=== PATIENT | male | born 1950 | race Caucasian/White ===

== ENCOUNTER 2021-09-30 10:25 | Emergency (ER) | payer MEDICARE ==
[~2021-09-30] VITALS: Ht 167.6 cm; Wt 59.0 kg
--- NOTE | 2021-09-30 10:32 | NUR ---
TO ER 10 FOR EVAL AND TREATMENT OF BLE NUMBNESS/TINGLING,NAD
[2021-09-30] MEDS ORDERED: TAMS-12 PO (10:49)
[2021-09-30] MEDS ORDERED: [UNRECOGNIZED DRUG - REMARK] PO (10:49)
[2021-09-30] MEDS ORDERED: AMLO-212 PO (10:49)
[2021-09-30 10:57] LABS: BASOPHILS % (AUTO) 0.8 % (0.0-2.0); EOSINOPHILS % (AUTO) 1.4 % (0.0-6.0); HEMATOCRIT 33 % (39-51); HEMOGLOBIN 10.8 g/dL (13.5-17.5); LYMPHOCYTES # (AUTO) 0.4 K/uL (0.8-4.8); LYMPHOCYTES % (AUTO) 8.9 % (20.0-44.0); MEAN CORPUSCULAR HGB CONC 33 g/dl (31.0-36.0); MEAN CORPUSCULAR VOLUME 78 fL (80-96); MONOCYTES # (AUTO) 0.6 K/uL (0.1-1.30); MONOCYTES % (AUTO) 11.3 % (2.0-12.0); NEUTROPHILS # (AUTO) 3.8 K/uL (1.8-8.9); NEUTROPHILS % (AUTO) 77.6 % (43.0-81.0); PLATELET COUNT (AUTO) 274 K/uL (150-450); RED BLOOD CELL COUNT(AUTO) 4.24 MIL/uL (4.5-6.0); WHITE BLOOD COUNT (AUTO) 4.9 K/uL (4.3-11.0)
--- NOTE | 2021-09-30 11:48 | NUR ---
THE PATIENT REQUESTS PAIN MEDS
[2021-09-30] MEDS ORDERED: KETOROLAC TROMETHAMINE 15 MG/ML VIAL ONE (11:51)
--- NOTE | 2021-09-30 11:52 | NUR ---
TORADOL IM GIVEN
[2021-09-30] MEDS: KETOROLAC TROMETHAMINE INJ 30 MG/ML VIAL IM ONE (11:54)
[2021-09-30 11:55] VITALS: BP 128/70
--- NOTE | 2021-09-30 11:55 | NUR ---
Patient discharged to home in stable condition. Written and verbal after care instructions given. Patient verbalizes understanding of instruction.
== END 2021-09-30 11:57 | disposition home or self-care (01) ==
LOC: ER 10:29
DX: G62.9 Polyneuropathy, unspecified (principal); D50.9 Iron deficiency anemia, unspecified; I10 Essential (primary) hypertension; Z85.038 Personal history of other malignant neoplasm of large intestine; Z79.899 Other long term (current) drug therapy
CPT/HCPCS: 36415; 80048; 85025; 96372; 99283; J1885